=== PATIENT | female | born 1955 | race Caucasian/White ===

== ENCOUNTER 2019-06-10 06:51 | Inpatient (IN) ==
--- NOTE | 2019-04-27 13:15 | PAT Medication Instructions ---
Medication Instructions Date of Service April 27, 2019 Home Medications adalimumab [Humira Pen] 40 mg SUBCUT UD citalopram 20 mg PO QAM folic acid 5 mg PO QAM levothyroxine 100 mcg PO QAM losartan-hydrochlorothiazide 1 tab PO QAM metformin 500 mg PO QAM methotrexate sodium 7.5 mg PO WK ASK your prescriber and surgeon adalimumab [Humira Pen] 40 mg SUBCUT UD methotrexate sodium 7.5 mg PO WK DO NOT take the morning of surgery folic acid 5 mg PO QAM losartan-hydrochlorothiazide 1 tab PO QAM metformin 500 mg PO QAM Take morning of surgery With a small sip of water, OTHERWISE NOTHING TO EAT OR DRINK AFTER MIDNIGHT: citalopram 20 mg PO QAM levothyroxine 100 mcg PO QAM Other Notes If you have any questions please call us at [phone] or [phone] or [phone] or [phone]
--- NOTE | 2019-04-28 12:15 | Anesthesiology Consultation ---
Date of Service April 28, 2019 Assessment & Plan (1) Encounter for pre-operative examination: PCP clearance 05/16/2019: "Reno Hernandez is medically stable and cleared for right TKA with UOC. She will be holding Humira 2 weeks prior. She will be holding methotrexate for 1 week prior." CHECK BSG AM DOS Chart Review Chart Review: Acceptable Risk for Surgery and Patient seen in Pre Admission Testing Teaching & Discussion Instructed NPO after midnight before surgery, except medications with 15 cc of water. Medication instructions provided according to the PAT guidelines. History Surgery Operation Date: 06/10/19 07:30 Proposed Procedures p Right Total Knee Arthroplasty - Guillermo Doyle DO Height/Weight Height: 5 ft 4 in Weight: 87.6 kg Allergies Allergy/AdvReac Type Severity Reaction Status Date / Time No Known Allergies Unverified 04/21/19 09:49 Medications Home Medications Medication Instructions Recorded Confirmed Last Taken adalimumab [Humira Pen] 40 mg SUBCUT UD 04/21/19 04/21/19 Unknown citalopram 20 mg PO QAM 04/21/19 04/21/19 Unknown folic acid 5 mg PO QAM 04/21/19 04/21/19 Unknown levothyroxine 100 mcg PO QAM 04/21/19 04/21/19 Unknown losartan-hydrochlorothiazide 1 tab PO QAM 04/21/19 04/21/19 Unknown metformin 500 mg PO QAM 04/21/19 04/21/19 Unknown methotrexate sodium 7.5 mg PO WK 04/21/19 04/21/19 Unknown Past Medical History Medical History Anxiety Depression Diabetes mellitus, type 2 NIDDM Fibromyalgia History of colon polyps HTN (hypertension) Hypothyroidism Osteoarthritis Rheumatoid arthritis Exercise / Class Metabolic Activity II 4-5 Yardwork/Stairs/Walk up hill (Denies chest pain or SOB with 1 FOS, limited by knee pain) Past Family History Family History Sister Family history of diabetes mellitus Sister Family history of diabetes mellitus Mother Family hx of colon cancer Past Surgical History Surgical History History of abdominal hysterectomy History of ankle fusion LT History of appendectomy History of section X 3 History of colonoscopy History of D&C History of partial thyroidectomy History of tonsillectomy and adenoidectomy History of tooth extraction Nausea and vomiting after administration of anesthetic agent Past Anesthesia History No Hx of Anesthesia Complications (other than PONV) and No Family Hx of Anesthesia Complications History of PONV No Hx of PONV (several episodes) and Hx of Motion Sickness Social History Smoking Status: Former smoker Do You Dip or Chew Tobacco: No Smoking End Date: 1982 Hx Alcohol Use: Yes Alcohol type: wine and hard liquor alcohol intake frequency: a few times a month Hx Substance Use: No substance use type: does not use Review of Systems Pt denies any recent chest pain, shortness of breath, palpitations, cough, fever or URI. Physical Exam Vital Signs BP: 99/66 P: 58bpm SPO2: 98% RA T: 98.1 F R: 16 ENMT Mouth: + dental restorations (5 crowns in a row upper L side) and + small oral opening; no chipped teeth and no loose teeth Thyromental Distance: > or= 3.5 Finger Breadths (.5) Mallampati Class: II Neck normal visual inspection; neck extension not limited Respiratory normal respiratory effort Auscultation: lungs clear to auscultation bilaterally Cardiovascular Rate/Rhythm: regular rate and regular rhythm Heart Sounds: no murmur Vessels: no carotid bruit Extremities: no edema Testing Laboratory Results 04/28/19 12:29 04/28/19 12:29 PT 9.8 Seconds (9.0-12.0) 04/28/19 12:29 INR 1.0 (0.9-1.1) 04/28/19 12:29 APTT 23.4 Seconds (21.0-31.0) 04/28/19 12:29 Hemoglobin A1c 6.3 % (4.5-5.6) H 04/28/19 12:29 Urine Color Dark Yellow 04/28/19 Unknown Urine Appearance Clear (Clear) 04/28/19 Unknown Urine pH 7.0 (4.5-7.5) 04/28/19 Unknown Ur Specific [place] 1.021 (1.000-1.030) 04/28/19 Unknown Urine Protein Negative (Negative) 04/28/19 Unknown Urine Glucose (UA) Negative (Negative) 04/28/19 Unknown Urine Ketones Negative (Negative) 04/28/19 Unknown Urine Nitrite Negative (Negative) 04/28/19 Unknown Ur Leukocyte Esterase Negative (Negative) 04/28/19 Unknown Blood Type A Positive 04/28/19 12:29 Antibody Screen NEGATIVE 04/28/19 12:29 Electrocardiogram Date: 04/28/19 Findings: + SB @ (57bpm) Nonspecific T wave abnormality. When compared with EKG of 08/27/2009, no significant changes found. Chest X-Ray Date: 04/28/19 Findings: + NAD
--- NOTE | 2019-04-28 12:53 | XRay Report ---
XR chest Pre-admission PA/Lat CLINICAL HISTORY: 64 years-old Female presenting with preoperative evaluation. TECHNIQUE: PA and lateral views of the chest were obtained. COMPARISON: None. FINDINGS: Cardiomediastinal silhouette normal. Lungs and pleural spaces clear. Osseous structures normal. Upper abdomen normal. IMPRESSION: 1. No acute cardiopulmonary disease. Electronically signed by: Nhan Mcduffie M.D. 04/28/2019 12:51 PM
[2019-04-28 13:04] LABS: Basophils # (auto) 0.04 K/uL (0-0.2); Basophils % (auto) 0.8 %; Eosinophils # (auto) 0.23 K/uL (0-0.5); Eosinophils % (auto) 4.7 %; Hematocrit (blood only) 36.8 % (37-47); Hemoglobin 12.6 g/dL (12.0-16.0); Lymphocytes % (auto) 42.9 %; Mean Corpuscular Hemoglobin 32.4 pg (25-34); Mean Corpuscular Hgb Conc 34.2 g/dL (32-36); Mean Corpuscular Volume 94.6 fL (80-100); Mean Platelet Volume 9.8 fL (7.4-10.4); Monocytes # (auto) 0.46 K/uL (0.11-0.59); Monocytes % (auto) 9.4 %; Neutrophils # (auto) 2.07 K/uL (1.4-6.5); Neutrophils % (auto) 42.2 %; Platelet Count 234 K/uL (130-400); RDW Coefficient of Variation 12.7 % (11.5-14.5); RDW Standard Deviation 43.3 fL (36.4-46.3); Red Blood Count 3.89 M/uL (4.2-5.4)
[2019-04-28 13:11] LABS: Appearance Urine Clear (Clear); Bilirubin Urine Negative (Negative); Blood Urine Negative (Negative); Color Urine Dark Yellow; Glucose Urine UA Negative (Negative); Ketones Urine Negative (Negative); Leukocyte Esterase Urine Negative (Negative); Nitrite Urine Negative (Negative); Protein Urine Negative (Negative); Specific Gravity Urine 1.021 (1.000-1.030); Urobilinogen Urine Negative (Negative)
[2019-04-28 13:14] LABS: Partial Thromboplastin Ratio 0.9; Partial Thromboplastin Time 23.4 Seconds (21.0-31.0); Prothrombin Time 9.8 Seconds (9.0-12.0)
[2019-04-28 13:15] LABS: Albumin Level 3.4 gm/dl (3.4-5.0); BUN Creatinine Ratio 13.4 (10-20); Calcium 8.9 mg/dl (8.5-10.1); Creatinine Clr Calc Pharmacy 66.1 ml/min; Est GFR (African American) 76.8; Est GFR (Non-African American) 66.3; Potassium 4.4 mmol/L (3.5-5.1)
[2019-04-28 14:13] LABS: Estimated Average Glucose 134 mg/dl; Hemoglobin A1C 6.3 % (4.5-5.6)
--- NOTE | 2019-06-08 18:31 | History & Physical Report ---
Date of Service June 08, 2019 Assessment & Plan (1) Unilateral primary osteoarthritis, right knee: Schedule a right knee TKA for 06.10.2019. All potential risks, benefits, complications, alternatives, and rehab have been discussed with the patient and she wishes to proceed. Plan for ASA 81 mg BID x 4 wks for DVT prophylaxis. Home with home health upon d/c. (2) Genu varum of right lower extremity: History of Present Illness Chief Complaint: right knee pain Primary Care Provider: Masoud Landin MD This is a patient with chronic right knee pain that has been treated for right knee osteoarthritis. She has failed all conservative management and has persistent knee pain. She is now being set up for surgical tx. Allergies Allergy/AdvReac Type Severity Reaction Status Date / Time No Known Allergies Unverified 04/21/19 09:49 Home Medications Home Medications Medication Instructions Recorded Confirmed Type adalimumab [Humira Pen] 40 mg SUBCUT UD 04/21/19 04/21/19 History citalopram 20 mg PO QAM 04/21/19 04/21/19 History folic acid 5 mg PO QAM 04/21/19 04/21/19 History levothyroxine 100 mcg PO QAM 04/21/19 04/21/19 History losartan-hydrochlorothiazide 1 tab PO QAM 04/21/19 04/21/19 History metformin 500 mg PO QAM 04/21/19 04/21/19 History methotrexate sodium 7.5 mg PO WK 04/21/19 04/21/19 History Past Med/Surg History Medical History Anxiety Depression Diabetes mellitus, type 2 NIDDM Fibromyalgia History of colon polyps HTN (hypertension) Hypothyroidism Osteoarthritis Rheumatoid arthritis Surgical History History of abdominal hysterectomy History of ankle fusion LT History of appendectomy History of section X 3 History of colonoscopy History of D&C History of partial thyroidectomy History of tonsillectomy and adenoidectomy History of tooth extraction Nausea and vomiting after administration of anesthetic agent Family History Sister Family history of diabetes mellitus Sister Family history of diabetes mellitus Mother Family hx of colon cancer Social History Preferred Language: Honduran Communication Ability: Effective Practice Clinician Required: No Beliefs That Will Affect Care: None Current Living Situation: Significant Other Other Information That Helps Us Care for You: No Feels Safe at Home: Yes Safety Concerns: Feels Safe At This Time Smoking Status: Former smoker Do You Dip or Chew Tobacco: No ; Smoking End Date: 1982 ; Second Hand Exposure: No ; Tobacco Cessation Education Requested by Patient: No Hx Alcohol Use: Yes Alcohol type: wine and hard liquor Hx Substance Use: No Physical Exam Constitutional: well developed and well nourished; no acute distress ENMT: external ear and nose normal, oropharynx normal Neck: trachea midline, no thyromegaly Respiratory: normal respiratory effort, lungs clear to auscultation Cardiovascular: Rate/Rhythm: regular rate and regular rhythm Gastrointestinal (Abdomen): normal bowel sounds, soft, nontender, no hepatosplenomegaly Musculoskeletal: Gait: + antalgic gait (right knee) Knee: + knee ROM with crepitation (right), + joint line tenderness (right medial joint line), + varus alignment (right knee) and + Kiki's sign positive; no skin erythema, no ecchymosis and no surgical incision Skin: no rashes, warm and dry Neurologic: normal touch/pain/proprioception Psychiatric: A+Ox3, euthymic affect Lymphatic: no cervical or axillary lymphadenopathy
[~2019-06-10 06:51] MED LIST: ACETAMINOPHEN 500 MG TAB PO SCH; BUPIVACAINE 0.5 % 5 MG/1 ML PF 10ML VIAL ONE; CEFAZOLIN 2000MG 2,000 MG/15 ML SYR IV SCH; CeleBREX 200 MG CAP PO SCH; EPINEPHrine INJ 1 MG/ML AMP ONE; FAMOTIDINE 20 MG TAB PO SCH; GABAPENTIN 600 MG DOSE PO SCH; LR 500ML BOLUS, THEN 15ML/HR IV SCH; METOCLOPRAMIDE HCL 10 MG TABLET PO SCH; ROPIVACAINE 0.5% 5 MG/ML 30 ML VIAL ONE; ROPIVACAINE 0.5% HCL/PF 150 MG, BUPIVACAINE 0.5% MPF 30 ML, EPINEPHrine 30MG/30ML (OR U... INFIL SCH; dexAMETHasone 4 MG TAB PO SCH
[2019-06-10] MEDS ORDERED: MIDAZOLAM HCL 1 MG/ML 2ML VIAL ONE (07:08)
[2019-06-10] MEDS ORDERED: fentaNYL citrate 100 MCG/2 ML VIAL ONE (07:08)
--- NOTE | 2019-06-10 07:14 | History & Physical Bridge Note ---
Date of Service June 10, 2019 History & Physical Bridge Note I have examined the patient, reviewed the History & Physical and in the interval since the performance of the History & Physical I have noted the following changes of clinical significance: no changes noted
[2019-06-10] MEDS ORDERED: BACITRACIN INJ 50,000 UNIT VIAL ONE (08:08)
[2019-06-10] MEDS ORDERED: ORTHO JOINT ANESTHETIC ONE (08:08)
[2019-06-10] MEDS ORDERED: HYDROmorphone INJ 1 MG/ML SYRINGE IV PRN (08:10)
[2019-06-10] MEDS ORDERED: fentaNYL citrate 100 MCG/2 ML VIAL IV PRN (08:10)
[2019-06-10] MEDS ORDERED: ePHEDrine sulfate 50 MG/ML AMP IV PRN (08:10)
[2019-06-10] MEDS ORDERED: ONDANSETRON INJ 2 MG/ML 2 ML VIAL IV PRN ×2 (08:10→12:33)
[2019-06-10] MEDS ORDERED: ATROPINE SULFATE 0.1 MG/ML 10ML SYR IV PRN (08:10)
[2019-06-10] MEDS ORDERED: SCOPOLAMINE 1.5 MG TDSY ONE (08:14)
[2019-06-10] MEDS ORDERED: TRANEXAMIC ACID / 0.7% NACL 1,000 MG/100 ML BAG IV STA (08:54)
[2019-06-10] MEDS ORDERED: TRANEXAMIC ACID / 0.7% NACL 1000MG/100ML BAG IV ONE (08:56)
[2019-06-10] MEDS ORDERED: PROPOFOL IV EMULSION 10 MG/ML 20 ML VIAL IV ONE (09:48)
[2019-06-10] MEDS ORDERED: ePHEDrine sulfate 50 MG/ML AMP ONE (09:48)
[2019-06-10] MEDS ORDERED: LIDOCAINE HCL 2% 2 ML VIAL/AMP(20MG/ML) INFIL ONE (09:48)
[2019-06-10] MEDS ORDERED: PHENYLEPHRINE 100MCG/ML 5ML SYR ONE (09:48)
[2019-06-10] MEDS ORDERED: ONDANSETRON INJ 2 MG/ML 2 ML VIAL ONE (09:49)
--- NOTE | 2019-06-10 10:41 | Post Operative Brief Note ---
Immediate Post Op Note v1 Date of Surgery June 10, 2019 Pre & Post Diagnosis Operation Date: 06/10/19 08:50 Pre-Op Diagnosis: RIGHT KNEE DEGENERATIVE JOINT DISEASE, RIGHT KNEE GENU VARUM, RIGHT KNEE OSTEOARTHRITIS Post-Op Diagnosis: RIGHT KNEE DEGENERATIVE JOINT DISEASE, RIGHT KNEE GENU VARUM, RIGHT KNEE OSTEOARTHRITIS I identified the patient and participated in the time-out.: Yes Procedure Operation Date: 06/10/19 08:50 Actual Procedures p Right Total Knee Arthroplasty(Right) - Guillermo Doyle DO Surgeon Guillermo Doyle DO Aeronautical Engineering Professor Bernardo Womack PA-C Estimated Blood Loss 10 Findings Consistent with Post-Op Diagnosis Specimens Bone and tissue right knee Drains Hemovac Drain (dual lumen) Anesthesia Type Spinal MAC Complications none Disposition Accompanied Patient To Recovery: No Disposition: Recovery Room Overlapping Procedure I was present for: the critical portions of procedure. I was immediately available: during the entire case.
--- NOTE | 2019-06-10 11:00 | Operative Report ---
DATE OF OPERATION: 06/10/2019 PREOPERATIVE DIAGNOSES: 1. Right knee degenerative joint disease. 2. Genu varum. 3. Osteoarthritis, right knee. POSTOPERATIVE DIAGNOSES: 1. Right knee degenerative joint disease. 2. Genu varum. 3. Osteoarthritis, right knee. PROCEDURE: Right total knee arthroplasty using MRI matched Jackson [employer] Nephew Journey II knee components with custom cutting blocks. Size 5 femur, size 3 tibia, 12 mm posterior stabilized polyethylene and a 32 mm patella. SURGEON: Guillermo Doyle DO [employer] TECHNICIAN: Bernardo Womack PA-C who was present for patient positioning, sterile prep and drape, management of retractors and instruments. He was present through the critical portions of the case including wound closure, application of sterile dressing and transport of the patient to recovery. ANESTHESIA: Spinal, regional with intra-articular local. SPECIMENS: Bone and tissue, right knee. DRAINS: Hemovac x2. COMPLICATIONS: None. BLOOD LOSS: 10 mL. PERTINENT HISTORY: This is a 64-year-old woman who has had chronic progressive and worsening right knee pain and deformity for the last 4-5 years. She attempted and failed conservative management including physician directed home exercises, formal physical therapy, anti-inflammatories, rest, observation, use of brace and use of an assistive device and intra-articular steroid injections. She failed all measures. Radiographs demonstrate severe degenerative arthritis with complete loss of the medial joint space, marginal osteophytes, subchondral sclerosis and subchondral cysts. The patient was then scheduled for surgical intervention as indicated. PROCEDURE: The patient was taken to the Operative Suite and placed supine on the operating table after spinal epidural was initiated. Next, tourniquet was placed high on the right thigh over cast padding and the patient was sedated. The right lower extremity was then sterilely prepped and draped in the usual fashion. It was elevated and exsanguinated with an Esmarch bandage and tourniquet inflated to 350 mmHg. Next, a 10-blade scalpel incision was made along the anterior midline of the right knee with incision deep through the subcutaneous tissue. Meticulous hemostasis was utilized with electrocautery. Full thickness skin flaps were developed both medially and laterally and 10-blade scalpel was used to make a median parapatellar incision in the extensor. The patella was everted and soft tissue releases were performed. The medial collateral was noted to be slightly tight so this was partially released using pie-crusting technique and the Monsivais elevator was placed from the posterior aspect of the capsule releasing any contracture. Next, the patella was everted and resurfaced using sagittal saw and orthogonal cuts. After caliper measured 28 mm, residual patella was approximately 15 mm and 32 mm button trial was placed and then drilled. Next, the appropriate retractors were placed and the femoral patient matched cutting block was pinned to the distal aspect of the femur. The distal femoral cut was made and pinned with pins and the distal femoral cutting guide was removed. The 4-in-1 cutting block was then pinned in place and anterior, posterior, anterior chamfer, and posterior chamfer cuts were made. Block and bone fragments were then removed followed by exposure of the proximal tibia. Sharp Hohmann was used to place just posterior to the tibia to protract it. Medial and lateral sharp Hohmann's were placed to protect the soft tissue and the tibial cutting block was then pinned in place. Tibial alignment cleve was utilized to confirm alignment and the proximal tibia was then cut made with sagittal saw. Fragment was removed. The Size 3 tibial trial was pinned in place and circumferential proximal release was performed with electrocautery around the proximal tibia. Next, the femoral trial was placed within appropriate medial and lateral alignment and then the cutting block was then put into place. It was reamed and box cut was performed. Excess debris was removed from the femoral notch. The insert was placed into the distal aspect of the femur. Trial poly Size 12 mm was placed in the proximal tibia. The knee was reduced. Trial poly Size 32 mm was placed in the patella. The knee was reduced. Excellent alignment and range of motion was achieved with correction of the genu varum and flexion contracture was achieved. Next, all components were removed. The Orthomix was injected into the posterior capsule and anterior aspect of the capsule. Next, the wound was lavaged with pulsatile lavage and all surfaces were suctioned and dried. Palacos-G cement was placed in the distal femur, proximal tibia, patella, and then a small amount was placed in the canal of the tibia. All implants were impacted into place in a stable fashion. Excess cement was removed from the joint. The patellar button was cemented and clamped in place. After sufficient drying time elapsed, the joint was then base with sterile dilute Betadine for period of 3 minutes. A 10-Icelandic double lumen Hemovac drain was placed in the anterolateral aspect of the knee. Copious lavage was performed With lavage solution with bacitracin. The extensor mechanism was closed using interrupted #1 Vicryl. The dermis was closed using buried interrupted 2-0 Vicryl. The skin was closed with skin aden. Sterile compressive dressing from the toes to the groin was applied. The tourniquet was released. The patient was awakened and taken to the Recovery Room in stable condition. I attest to the content of the Intraoperative Record and any orders documented therein. Any exceptions are noted below. MTDD
--- NOTE | 2019-06-10 11:31 | XRay Report ---
XR knee RT 1 or 2V routine HISTORY: 64 years-old Female Surgical Post Op right knee total joint arthroplasty COMPARISON: None available TECHNIQUE: 2 views of the right knee FINDINGS: Right knee total joint arthroplasty and patellar resurfacing. Satisfactory alignment with anterior mi dline skin aden, expected postsurgical soft tissue swelling and deep tissue air with surgical drai nage catheter. No acute fracture or retained foreign body. IMPRESSION: Right knee total joint arthroplasty and patella resurfacing with expected postoperative f indings. ACT 112: Negative or not required by law. The above report was generated using voice recognition software. It may contain grammatical, syntax o r spelling errors. Electronically signed by: Valentino Menjivar M.D. 06/10/2019 11:30 AM
[2019-06-10] MEDS ORDERED: MAGNESIUM HYDROXIDE SUSP 30 ML UDC PO PRN (12:33)
[2019-06-10] MEDS ORDERED: bisacodyL 10 MG SUPP PR PRN (12:33)
[2019-06-10] MEDS ORDERED: HYDROmorphone INJ 0.5 MG/0.5 ML SYR IV PRN (12:33)
[2019-06-10] MEDS ORDERED: NALOXONE HCL 0.4 MG/1 ML VIAL/CARP IV PRN (12:33)
--- NOTE | 2019-06-10 12:36 | Anesthesiology Progress Note ---
Date of Service June 10, 2019 Anesthesia Post Procedure Vital Signs Vital Signs: Temp Pulse Pulse Resp BP Pulse Ox 06/10/19 12:32 36.4 C L 78 16 104/65 97 06/10/19 11:50 36.8 C 85 18 114/60 95 06/10/19 11:40 36.8 C 86 13 112/61 95 06/10/19 11:30 36.8 C 85 14 115/61 95 06/10/19 11:20 87 17 123/64 97 06/10/19 11:10 86 13 119/60 98 06/10/19 10:59 37.0 C 93 H 17 113/59 L 99 06/10/19 07:42 36.8 C 68 20 114/75 95 Pain Intensity Right Knee: Pain Intensity: 0 Transfer of Care Handoff Completed per policy Notes Mental Status: alert / awake / arousable and participated in evaluation Patient Amnestic to Procedure: Yes Nausea / Vomiting: adequately controlled Pain: adequately controlled Airway Patency, RR, SpO2: stable & adequate BP & HR: stable & adequate Hydration State: stable & adequate Neuraxial Anesthesia: was administered and sensory block is resolving Anesthetic Complications: no major complications apparent and Pt Satisfied with anesthetic care
[2019-06-10] MEDS: ACETAMINOPHEN 500 MG TAB PO SCH ×2 (13:51→21:24)
[2019-06-10] MEDS: SODIUM CHLORIDE 0.9% 1000ML 1,000 ML IV SCH ×2 (13:52→23:46)
[2019-06-10] MEDS ORDERED: PHARMACY GLYCEMIC MGMT CONSULT PRN (16:18)
[2019-06-10] MEDS ORDERED: GLUCAGON FOR INJ 1 MG VIAL IM PRN (16:45)
[2019-06-10] MEDS ORDERED: GLUCOSE 40% GEL 15 GM TUBE PO PRN (16:45)
[2019-06-10] MEDS ORDERED: CARBOHYDRATES FOR HYPOGLYCEMIA PO PRN (16:45)
[2019-06-10] MEDS ORDERED: GLUCOSE 10 TABS/TUBE PO PRN (16:45)
[2019-06-10] MEDS ORDERED: DEXTROSE 50% 50 ML SYRINGE IV PRN (16:45)
[2019-06-10] MEDS ORDERED: INSULIN GLARGINE SOLOSTAR 100 UNITS/ML 3 ML PEN SC ONE (17:00)
[2019-06-10] MEDS: FERROUS GLUCONATE 324 MG TAB PO SCH (17:38)
[2019-06-10] MEDS: CEFAZOLIN 2000MG 2,000 MG/15 ML SYR IV SCH ×2 (17:38→23:48)
[2019-06-10] MEDS: INSULIN ASPART 100 UNITS/ML 3 ML PEN SC SCH ×3 (18:07→23:48)
--- NOTE | 2019-06-10 20:09 | Pharmacy Report ---
Glycemic Control Consultation - Date of Service June 10, 2019 - Scope Scope: Glycemic Pharmacist consulted by Bernardo Womack on 06/10/2019 for glycemic control and to write orders per [facility] inpatient glycemic control protocol - Objective Weight: 87.4 kg Accuchecks BSG (last 24hrs): 06/10/19 06/10/19 06/10/19 07:35 11:00 12:23 POC Glucose 165 H 170 H 219 H 06/10/19 06/10/19 06/10/19 17:20 17:22 17:43 POC Glucose 313 H* 322 H* 279 H HbA1c: Hemoglobin A1c 6.3 % (4.5-5.6) H 04/28/19 12:29 - Recent Pertinent Medications Outpatient Anti-diabetic Regimen: * Metformin 500 mg PO daily * A1c = 6.3 % (04/28/19) Risk Factors for Insulin Resistance: * Steroids: dexamethasone 8 mg PO x 1 + intra-articular ortho mix * Recent Surgery: POD #0 s/p right TKA * Diet: T2DM - Assessment & Plan Assessment & Plan: ASSESSMENT: * SARIAH is a 64 year old female POD #0 s/p right TKA * Received 8 mg dexamethasone PO x 1 + ortho mix intraoperatively * Pharmacy consulted at dinner-time on 06/10/19 for a BSG of 313 * Lantus 35 units (0.4 unit/kg) given at that time with CF: 20 and CR: 6 PLAN FOR INPATIENT GLYCEMIC CONTROL: * Holding outpatient oral diabetes medications * Basal insulin * Lantus 35 units x 1 today * Lantus 15 units SQ BID thereafter - will reassess in AM * Bolus insulin * NovoLog per scale ACHS or Q6hrs while NPO * Goal Range: Low 110 mg/dL - High 140 mg/dL * Correction Factor: 25 mg/dL/unit * Nutritional / Prandial insulin per carb ratio of 1 unit per 9 grams CHO consumed * Overnight checks 00,04 with same parameters * Please note that the plan above was derived based on current level of insulin resistance and hospital stress. These recommendations are appropriate for inpatient admission only. Plan of care upon discharge will need to be reassessed to avoid potential outpatient hypo/hyperglycemia. Thank you.
[2019-06-10] MEDS ORDERED: SENNA 8.6 MG TAB PO SCH (21:00)
[2019-06-10] MEDS: DOCUSATE SODIUM 100 MG CAP PO SCH (21:24)
[2019-06-10] MEDS: ASPIRIN 81 MG ECTAB PO SCH (21:25)
[2019-06-10] MEDS: OXYCODONE HCL IR 5 MG TAB (IMMEDIATE RELEASE) PO PRN (23:45)
[2019-06-11] MEDS: INSULIN ASPART 100 UNITS/ML 3 ML PEN SC SCH ×3 (04:12→13:06)
[2019-06-11] MEDS: OXYCODONE HCL IR 5 MG TAB (IMMEDIATE RELEASE) PO PRN ×2 (04:12→14:33)
[2019-06-11] MEDS: ACETAMINOPHEN 500 MG TAB PO SCH ×2 (05:29→13:09)
[2019-06-11 05:51] LABS: Hematocrit (blood only) 29.6 % (37-47); Hemoglobin 10.4 g/dL (12.0-16.0); Mean Corpuscular Hemoglobin 32.4 pg (25-34); Mean Corpuscular Hgb Conc 35.1 g/dL (32-36); Mean Corpuscular Volume 92.2 fL (80-100); Mean Platelet Volume 9.7 fL (7.4-10.4); Platelet Count 207 K/uL (130-400); RDW Standard Deviation 43.7 fL (36.4-46.3); Red Blood Count 3.21 M/uL (4.2-5.4); White Blood Count 10.84 K/uL (4.8-10.8)
[2019-06-11 06:17] LABS: BUN Creatinine Ratio 19.5 (10-20); Calcium 8.4 mg/dl (8.5-10.1); Creatinine Clr Calc Pharmacy 51.3 ml/min; Est GFR (African American) 55.7; Est GFR (Non-African American) 48.1; Potassium 4.3 mmol/L (3.5-5.1)
[2019-06-11] MEDS ORDERED: LEVOTHYROXINE SODIUM 100 MCG TABLET PO SCH (06:30)
[2019-06-11] MEDS ORDERED: METFORMIN HCL 500 MG TAB PO SCH (08:00)
--- NOTE | 2019-06-11 08:05 | Orthopedic Progress Note ---
Date of Service June 11, 2019 Assessment & Plan (1) S/P total knee arthroplasty: POD#1 Right TKA -Pain management -DVT prophylaxis-SCDs, aspirin 81mg BID -PT/OT -AM labs-hemoglobin 10.4 this morning from 12.6 preop. -Foot drop this morning, will monitor -D/C planning-home with OPPT. Will recheck later today. If foot function improves possibly discharge for today. Subjective POD#1 right TKA. Pain well controlled this morning. Is having difficulty with DF. No other complaints Review of Systems Review of Systems: All systems reviewed & are unremarkable except as noted in HPI & below Physical Exam Physical Exam: Dressing is c/d/i. Hemovac in place. No calf tenderness. Distally sensation intact, pules palpable. Difficulty to actively DF. Results & Data Vital Signs (Past 12 Hours) Vital Signs Temp Pulse Resp BP Pulse Ox 06/11/19 07:38 92/55 L 06/11/19 07:35 36.6 C 69 18 89/51 L 06/11/19 04:05 36.6 C 66 18 103/57 L 96 06/10/19 23:00 36.9 C 66 16 99/65 L 96 Laboratory Results Lab Results 04/28/19 04/28/19 04/28/19 Range/Units 12:29 12:29 12:29 WBC 4.90 (4.8-10.8) K/uL RBC 3.89 L (4.2-5.4) M/uL Hgb 12.6 (12.0-16.0) g/dL Hct 36.8 L (37-47) % MCV 94.6 (80-100) fL MCH 32.4 (25-34) pg MCHC 34.2 (32-36) g/dL RDW Std Deviation 43.3 (36.4-46.3) fL RDW Coeff of Sheryl 12.7 (11.5-14.5) % Plt Count 234 (130-400) K/uL MPV 9.8 (7.4-10.4) fL Immature Gran % (Auto) 0.0 % Neut % (Auto) 42.2 % Lymph % (Auto) 42.9 % Charles % (Auto) 9.4 % Eos % (Auto) 4.7 % Baso % (Auto) 0.8 % Immature Gran # (Auto) 0.00 (0.00-0.02) K/uL Neut # (Auto) 2.07 (1.4-6.5) K/uL Lymph # (Auto) 2.10 (1.2-3.4) K/uL Charles # (Auto) 0.46 (0.11-0.59) K/uL Eos # (Auto) 0.23 (0-0.5) K/uL Baso # (Auto) 0.04 (0-0.2) K/uL PT 9.8 (9.0-12.0) Seconds INR 1.0 (0.9-1.1) APTT 23.4 (21.0-31.0) Seconds PTT Ratio 0.9 Sodium 141 (136-145) mmol/L Potassium 4.4 (3.5-5.1) mmol/L Chloride 108 H (98-107) mmol/L Carbon Dioxide 32 (21-32) mmol/L Anion Gap 1.0 L (3-11) BUN 12 (7-18) mg/dl Creatinine 0.92 (0.6-1.2) mg/dl Est Cr Clr Drug Dosing 66.1 ml/min Est GFR ( Amer) 76.8 Est GFR (Non-Af Amer) 66.3 BUN/Creatinine Ratio 13.4 (10-20) Glucose 94 (70-99) mg/dl POC Glucose (70-99) mg/dl Estimat Average Glucose mg/dl Hemoglobin A1c (4.5-5.6) % Calcium 8.9 (8.5-10.1) mg/dl Albumin 3.4 (3.4-5.0) gm/dl Urine Color Urine Appearance (Clear) Urine pH (4.5-7.5) Ur Specific Astor (1.000-1.030) Urine Protein (Negative) Urine Glucose (UA) (Negative) Urine Ketones (Negative) Urine Blood (Negative) Urine Nitrite (Negative) Urine Bilirubin (Negative) Urine Urobilinogen (Negative) Ur Leukocyte Esterase (Negative) Blood Type Antibody Screen 04/28/19 04/28/19 04/28/19 Range/Units 12:29 12:29 Unknown WBC (4.8-10.8) K/uL RBC (4.2-5.4) M/uL Hgb (12.0-16.0) g/dL Hct (37-47) % MCV (80-100) fL MCH (25-34) pg MCHC (32-36) g/dL RDW Std Deviation (36.4-46.3) fL RDW Coeff of Sheryl (11.5-14.5) % Plt Count (130-400) K/uL MPV (7.4-10.4) fL Immature Gran % (Auto) % Neut % (Auto) % Lymph % (Auto) % Charles % (Auto) % Eos % (Auto) % Baso % (Auto) % Immature Gran # (Auto) (0.00-0.02) K/uL Neut # (Auto) (1.4-6.5) K/uL Lymph # (Auto) (1.2-3.4) K/uL Charles # (Auto) (0.11-0.59) K/uL Eos # (Auto) (0-0.5) K/uL Baso # (Auto) (0-0.2) K/uL PT (9.0-12.0) Seconds INR (0.9-1.1) APTT (21.0-31.0) Seconds PTT Ratio Sodium (136-145) mmol/L Potassium (3.5-5.1) mmol/L Chloride (98-107) mmol/L Carbon Dioxide (21-32) mmol/L Anion Gap (3-11) BUN (7-18) mg/dl Creatinine (0.6-1.2) mg/dl Est Cr Clr Drug Dosing ml/min Est GFR ( Amer) Est GFR (Non-Af Amer) BUN/Creatinine Ratio (10-20) Glucose (70-99) mg/dl POC Glucose (70-99) mg/dl Estimat Average Glucose 134 mg/dl Hemoglobin A1c 6.3 H (4.5-5.6) % Calcium (8.5-10.1) mg/dl Albumin (3.4-5.0) gm/dl Urine Color Dark Yellow Urine Appearance Clear (Clear) Urine pH 7.0 (4.5-7.5) Ur Specific Astor 1.021 (1.000-1.030) Urine Protein Negative (Negative) Urine Glucose (UA) Negative (Negative) Urine Ketones Negative (Negative) Urine Blood Negative (Negative) Urine Nitrite Negative (Negative) Urine Bilirubin Negative (Negative) Urine Urobilinogen Negative (Negative) Ur Leukocyte Esterase Negative (Negative) Blood Type A Positive Antibody Screen NEGATIVE 06/10/19 06/10/19 06/10/19 Range/Units 07:35 11:00 12:23 WBC (4.8-10.8) K/uL RBC (4.2-5.4) M/uL Hgb (12.0-16.0) g/dL Hct (37-47) % MCV (80-100) fL MCH (25-34) pg MCHC (32-36) g/dL RDW Std Deviation (36.4-46.3) fL RDW Coeff of Sheryl (11.5-14.5) % Plt Count (130-400) K/uL MPV (7.4-10.4) fL Immature Gran % (Auto) % Neut % (Auto) % Lymph % (Auto) % Charles % (Auto) % Eos % (Auto) % Baso % (Auto) % Immature Gran # (Auto) (0.00-0.02) K/uL Neut # (Auto) (1.4-6.5) K/uL Lymph # (Auto) (1.2-3.4) K/uL Charles # (Auto) (0.11-0.59) K/uL Eos # (Auto) (0-0.5) K/uL Baso # (Auto) (0-0.2) K/uL PT (9.0-12.0) Seconds INR (0.9-1.1) APTT (21.0-31.0) Seconds PTT Ratio Sodium (136-145) mmol/L Potassium (3.5-5.1) mmol/L Chloride (98-107) mmol/L Carbon Dioxide (21-32) mmol/L Anion Gap (3-11) BUN (7-18) mg/dl Creatinine (0.6-1.2) mg/dl Est Cr Clr Drug Dosing ml/min Est GFR ( Amer) Est GFR (Non-Af Amer) BUN/Creatinine Ratio (10-20) Glucose (70-99) mg/dl POC Glucose 165 H 170 H 219 H (70-99) mg/dl Estimat Average Glucose mg/dl Hemoglobin A1c (4.5-5.6) % Calcium (8.5-10.1) mg/dl Albumin (3.4-5.0) gm/dl Urine Color Urine Appearance (Clear) Urine pH (4.5-7.5) Ur Specific Astor (1.000-1.030) Urine Protein (Negative) Urine Glucose (UA) (Negative) Urine Ketones (Negative) Urine Blood (Negative) Urine Nitrite (Negative) Urine Bilirubin (Negative) Urine Urobilinogen (Negative) Ur Leukocyte Esterase (Negative) Blood Type Antibody Screen 06/10/19 06/10/19 06/10/19 Range/Units 17:20 17:22 17:43 WBC (4.8-10.8) K/uL RBC (4.2-5.4) M/uL Hgb (12.0-16.0) g/dL Hct (37-47) % MCV (80-100) fL MCH (25-34) pg MCHC (32-36) g/dL RDW Std Deviation (36.4-46.3) fL RDW Coeff of Sheryl (11.5-14.5) % Plt Count (130-400) K/uL MPV (7.4-10.4) fL Immature Gran % (Auto) % Neut % (Auto) % Lymph % (Auto) % Charles % (Auto) % Eos % (Auto) % Baso % (Auto) % Immature Gran # (Auto) (0.00-0.02) K/uL Neut # (Auto) (1.4-6.5) K/uL Lymph # (Auto) (1.2-3.4) K/uL Charles # (Auto) (0.11-0.59) K/uL Eos # (Auto) (0-0.5) K/uL Baso # (Auto) (0-0.2) K/uL PT (9.0-12.0) Seconds INR (0.9-1.1) APTT (21.0-31.0) Seconds PTT Ratio Sodium (136-145) mmol/L Potassium (3.5-5.1) mmol/L Chloride (98-107) mmol/L Carbon Dioxide (21-32) mmol/L Anion Gap (3-11) BUN (7-18) mg/dl Creatinine (0.6-1.2) mg/dl Est Cr Clr Drug Dosing ml/min Est GFR ( Amer) Est GFR (Non-Af Amer) BUN/Creatinine Ratio (10-20) Glucose (70-99) mg/dl POC Glucose 313 H* 322 H* 279 H (70-99) mg/dl Estimat Average Glucose mg/dl Hemoglobin A1c (4.5-5.6) % Calcium (8.5-10.1) mg/dl Albumin (3.4-5.0) gm/dl Urine Color Urine Appearance (Clear) Urine pH (4.5-7.5) Ur Specific Astor (1.000-1.030) Urine Protein (Negative) Urine Glucose (UA) (Negative) Urine Ketones (Negative) Urine Blood (Negative) Urine Nitrite (Negative) Urine Bilirubin (Negative) Urine Urobilinogen (Negative) Ur Leukocyte Esterase (Negative) Blood Type Antibody Screen 06/10/19 06/10/19 06/11/19 Range/Units 20:36 23:36 04:00 WBC (4.8-10.8) K/uL RBC (4.2-5.4) M/uL Hgb (12.0-16.0) g/dL Hct (37-47) % MCV (80-100) fL MCH (25-34) pg MCHC (32-36) g/dL RDW Std Deviation (36.4-46.3) fL RDW Coeff of Sheryl (11.5-14.5) % Plt Count (130-400) K/uL MPV (7.4-10.4) fL Immature Gran % (Auto) % Neut % (Auto) % Lymph % (Auto) % Charles % (Auto) % Eos % (Auto) % Baso % (Auto) % Immature Gran # (Auto) (0.00-0.02) K/uL Neut # (Auto) (1.4-6.5) K/uL Lymph # (Auto) (1.2-3.4) K/uL Charles # (Auto) (0.11-0.59) K/uL Eos # (Auto) (0-0.5) K/uL Baso # (Auto) (0-0.2) K/uL PT (9.0-12.0) Seconds INR (0.9-1.1) APTT (21.0-31.0) Seconds PTT Ratio Sodium (136-145) mmol/L Potassium (3.5-5.1) mmol/L Chloride (98-107) mmol/L Carbon Dioxide (21-32) mmol/L Anion Gap (3-11) BUN (7-18) mg/dl Creatinine (0.6-1.2) mg/dl Est Cr Clr Drug Dosing ml/min Est GFR ( Amer) Est GFR (Non-Af Amer) BUN/Creatinine Ratio (10-20) Glucose (70-99) mg/dl POC Glucose 264 H 179 H 141 H (70-99) mg/dl Estimat Average Glucose mg/dl Hemoglobin A1c (4.5-5.6) % Calcium (8.5-10.1) mg/dl Albumin (3.4-5.0) gm/dl Urine Color Urine Appearance (Clear) Urine pH (4.5-7.5) Ur Specific Astor (1.000-1.030) Urine Protein (Negative) Urine Glucose (UA) (Negative) Urine Ketones (Negative) Urine Blood (Negative) Urine Nitrite (Negative) Urine Bilirubin (Negative) Urine Urobilinogen (Negative) Ur Leukocyte Esterase (Negative) Blood Type Antibody Screen 06/11/19 06/11/19 Range/Units 05:26 05:26 WBC 10.84 H (4.8-10.8) K/uL RBC 3.21 L (4.2-5.4) M/uL Hgb 10.4 L (12.0-16.0) g/dL Hct 29.6 L (37-47) % MCV 92.2 (80-100) fL MCH 32.4 (25-34) pg MCHC 35.1 (32-36) g/dL RDW Std Deviation 43.7 (36.4-46.3) fL RDW Coeff of Sheryl 13.0 (11.5-14.5) % Plt Count 207 (130-400) K/uL MPV 9.7 (7.4-10.4) fL Immature Gran % (Auto) % Neut % (Auto) % Lymph % (Auto) % Charles % (Auto) % Eos % (Auto) % Baso % (Auto) % Immature Gran # (Auto) (0.00-0.02) K/uL Neut # (Auto) (1.4-6.5) K/uL Lymph # (Auto) (1.2-3.4) K/uL Charles # (Auto) (0.11-0.59) K/uL Eos # (Auto) (0-0.5) K/uL Baso # (Auto) (0-0.2) K/uL PT (9.0-12.0) Seconds INR (0.9-1.1) APTT (21.0-31.0) Seconds PTT Ratio Sodium 136 (136-145) mmol/L Potassium 4.3 (3.5-5.1) mmol/L Chloride 106 (98-107) mmol/L Carbon Dioxide 23 (21-32) mmol/L Anion Gap 7.0 (3-11) BUN 23 H (7-18) mg/dl Creatinine 1.20 (0.6-1.2) mg/dl Est Cr Clr Drug Dosing 51.3 ml/min Est GFR ( Amer) 55.7 Est GFR (Non-Af Amer) 48.1 BUN/Creatinine Ratio 19.5 (10-20) Glucose 128 H (70-99) mg/dl POC Glucose (70-99) mg/dl Estimat Average Glucose mg/dl Hemoglobin A1c (4.5-5.6) % Calcium 8.4 L (8.5-10.1) mg/dl Albumin (3.4-5.0) gm/dl Urine Color Urine Appearance (Clear) Urine pH (4.5-7.5) Ur Specific Astor (1.000-1.030) Urine Protein (Negative) Urine Glucose (UA) (Negative) Urine Ketones (Negative) Urine Blood (Negative) Urine Nitrite (Negative) Urine Bilirubin (Negative) Urine Urobilinogen (Negative) Ur Leukocyte Esterase (Negative) Blood Type Antibody Screen (1) S/P total knee arthroplasty Laterality: right Qualified Code(s): Z96.651 - Presence of right artificial knee joint
[2019-06-11] MEDS ORDERED: INSULIN GLARGINE SOLOSTAR 100 UNITS/ML 3 ML PEN SC SCH (09:00)
[2019-06-11] MEDS ORDERED: CITALOPRAM 20 MG TAB PO SCH (09:00)
[2019-06-11] MEDS ORDERED: FOLIC ACID 1 MG TAB PO SCH (09:00)
[2019-06-11] MEDS ORDERED: LOSARTAN POTASSIUM 50 MG TAB PO SCH (09:00)
[2019-06-11] MEDS ORDERED: MULTIVITAMIN TAB PO SCH (09:00)
[2019-06-11] MEDS: FERROUS GLUCONATE 324 MG TAB PO SCH (09:20)
[2019-06-11] MEDS: hydroCHLOROthiazide 25 MG TAB PO SCH ×2 (09:21→09:26)
[2019-06-11] MEDS: DOCUSATE SODIUM 100 MG CAP PO SCH (09:22)
[2019-06-11] MEDS: ASPIRIN 81 MG ECTAB PO SCH (10:14)
--- NOTE | 2019-06-11 14:28 | Anesthesiology Progress Note ---
Date of Service June 11, 2019 Anesthesia Post Procedure Vital Signs Vital Signs: Temp Pulse Resp BP Pulse Ox 06/11/19 13:57 36.6 C 69 18 92/55 L 96 06/11/19 07:38 92/55 L 06/11/19 07:35 36.6 C 69 18 89/51 L 06/11/19 04:05 36.6 C 66 18 103/57 L 96 06/10/19 23:00 36.9 C 66 16 99/65 L 96 06/10/19 19:35 36.5 C 85 17 145/74 H 98 06/10/19 15:26 94 06/10/19 15:10 36.5 C 88 16 106/68 97 Pain Intensity Right Knee: Pain Intensity: 4 Notes Mental Status: alert / awake / arousable and participated in evaluation Patient Amnestic to Procedure: Yes Nausea / Vomiting: adequately controlled Pain: adequately controlled Airway Patency, RR, SpO2: stable & adequate BP & HR: stable & adequate Hydration State: stable & adequate Neuraxial Anesthesia: was administered and sensory block resolved Anesthetic Complications: no major complications apparent
--- NOTE | 2019-06-14 14:33 | Discharge Summary ---
Date of Service June 14, 2019 Admission HPI Per Admitting Provider This is a patient with chronic right knee pain that has been treated for right knee osteoarthritis. She has failed all conservative management and has persistent knee pain. She is now being set up for surgical tx. Admission Exam Per Admitting Provider Constitutional: well developed and well nourished; no acute distress ENMT: external ear and nose normal, oropharynx normal Neck: trachea midline, no thyromegaly Respiratory: normal respiratory effort, lungs clear to auscultation Cardiovascular: Rate/Rhythm: regular rate and regular rhythm Gastrointestinal (Abdomen): normal bowel sounds, soft, nontender, no hepatosplenomegaly Musculoskeletal: Gait: + antalgic gait (right knee) Knee: + knee ROM with crepitation (right), + joint line tenderness (right medial joint line), + varus alignment (right knee) and + Kiki's sign positive; no skin erythema, no ecchymosis and no surgical incision Skin: no rashes, warm and dry Neurologic: normal touch/pain/proprioception Psychiatric: A+Ox3, euthymic affect Lymphatic: no cervical or axillary lymphadenopathy Principal Diagnosis Right knee osteoarthritis Discharge Data Allergies Allergy/AdvReac Type Severity Reaction Status Date / Time No Known Allergies Verified 06/10/19 07:25 Consultations 06/10/19 12:33 Consult Case Management - Discharge Planning Routine Procedures Performed Operation Date: 06/10/19 08:50 Actual Procedures p Right Total Knee Arthroplasty(Right) - Guillermo Doyle DO Ordered Studies 06/10/19 05:00 US - OR guided needle placemen Routine 06/10/19 08:05 US - OR guided needle placemen Routine Hospital Course (1) S/P total knee arthroplasty: [place] [id number] Orthopedic Progress Note Signed with Denisse Patient: Oscar PATRICIO Date: 06/10/19 MR#: [id number] Phy: Guillermo Doyle D.OVannesa Acct ID:[id number] Phy: Masoud Landin MD Date: 1955Fam Phy: Age: 64Location: 3E Sex: F Room/Bed: [facility] cc: ~ *NOTICE TO RECEIVING GREEN PARTY/AGENCY This information is strictly Confidential and protected under [place] law. [place] law prohibits you from making any further disclosure of this information unless further disclosure is expressly permitted by the written consent of the person to whom it pertains or is authorized by law. A general authorization for the release of medical or other information is not sufficient for this purpose. Hospital accepts no responsibility if the information is made available to any other person, INCLUDING THE PATIENT. ADDENDUM Addendum (Blank) Addendum June 11, 2019 14:[address] Doyle who was in to the see the patient this afternoon. She is okay for discharge home today. Addendum Signed By:<Electronically signed by Satya Nelson >06/11/191429 Addendum Cosigned By:<Electronically signed by Guillermo Doyle DO>06/11/19 154 Created: 06/11/19 Date of Service June 11, 2019 Assessment & Plan (1) S/P total knee arthroplasty: POD#1 Right TKA -Pain management -DVT prophylaxis-SCDs, aspirin 81mg BID -PT/OT -AM labs-hemoglobin 10.4 this morning from 12.6 preop. -Foot drop this morning, will monitor -D/C planning-home with OPPT. Will recheck later today. If foot function improves possibly discharge for today. Subjective POD#1 right TKA. Pain well controlled this morning. Is having difficulty with DF. No other complaints Review of Systems Review of Systems: All systems reviewed & are unremarkable except as noted in HPI & below Physical Exam Physical Exam: Dressing is c/d/i. Hemovac in place. No calf tenderness. Distally sensation intact, pules palpable. Difficulty to actively DF. Results & Data Vital Signs (Past 12 Hours) Vital Signs Temp Pulse Resp BP Pulse Ox 06/11/19 07:38 92/55 L 06/11/19 07:35 36.6 C 69 18 89/51 L 06/11/19 04:05 36.6 C 66 18 103/57 L 96 06/10/19 23:00 36.9 C 66 16 99/65 L 96 Total Time Total Time Spent Total Time Spent (In Minutes): 5 Discharge Plan Discharge Items Patient Disposition: Home - Self-Care Reason For Visit: RIGHT KNEE OSTEOARTHRITIS Discharge Diagnosis: Right knee osteoarthritis Activity: Per Instructions section Non-emergency contact: Surgeon Call non-emergency contact if: you have any medication questions, your pain is not controlled, your pain is worsening, your pain is concerning for you, you have a fever, your temperature is above 101, your wound has increased redness, your wound has increased drainage and your wound pain has increased Follow-up/Referrals: Masoud Landin MD [Primary Care Provider] - Diet: Regular Addtl Attending Provider Instructions: ACTIVITY RECOMMENDATIONS: SELF CARE INSTRUCTIONS AFTER TOTAL KNEE REPLACEMENT A. You may need to continue a physical therapy program after discharge from the hospital. There are several options available to you. Your doctor will assist you in selecting the best one for you. 1. An out-patient facility 2 to 3 times a week for therapy or home therapy. 2. Continue working on all exercises taught to you in the hospital. Your goals should be to increase bending of your knee to 90 degrees and beyond and to fully straighten your knee. B. You may progress at your own pace from walking with a walker or crutches to a cane; then to no assistive devices. C. Make walking a part of your daily routine. Be up as much as comfortable with rest periods throughout the day. Rest with leg elevation is very important. Use the ice wrap frequently for the first 3-4 weeks. D. There are no restrictions on activities. You may ride in a car, shop, participate in [employer] concrete [employer] and all social activities. E. Wear the long elastic stockings (SHERI hose) 20 hours a day for one month after surgery. They can be removed several times a day for laundering and for a bath. SPECIAL CARE INSTRUCTIONS: VERY IMPORTANT TO READ AND REVIEW A. Take Coumadin, Xarelto, Aspirin or Lovenox (blood thinning medications) as directed by your doctor. If on Coumadin, have a pro-time (blood test) drawn according to your doctor's instructions. This will tell the doctor how well the Coumadin is thinning your blood. B. There are a few signs you need to watch for after you are home. Call [facility] if you notice any of the followin. Increased severe knee pain. Some pain is expected especially when you exercise. 2. Increased swelling in your leg or knee; pain or swelling of the calf muscle in either lower leg. 3. Any fluid drainage from the incision. 4. Shortness of breath or chest pain. C. Please call [facility] at if you have any concerns or questions about your operation or recovery. The doctor or his nurse will return your call promptly. D. You must take antibiotics before dental work, bladder, bowel or other surgery. Your doctor will provide you with a permanent care to carry describing this precaution. * CALL IF INCREASED PAIN, REDNESS, DRAINAGE OR FEVER GREATER THAT 101 F. * WEAR SHERI HOSE 20 HOURS PER DAY FOR 4 WEEKS. FOLLOW UP VISIT: If appointment is not already scheduled: Please call [facility] to make a follow-up appointment for 2 weeks after your surgery to have aden removed at . Pending Studies at Discharge: No Stand-Alone Forms: My [facility], Opioid Pain Management, Smoking Cessation Medications and DC Order Prescriptions: New aspirin [Ecotrin Low Strength] 81 mg Tablet,Delayed Release (Dr/Ec) 81 mg PO BID Qty: 60 RF: 0 acetaminophen 500 mg Tablet 1,000 mg PO Q8 Qty: 60 RF: 0 oxycodone 5 mg tablet 5 - 10 mg PO .Q4H-6H MDD 6 PRN (Reason: pain) Qty: 30 RF: 0 Continued metformin 500 mg Tablet 500 mg PO QAM RF: 0 levothyroxine 100 mcg Tablet 100 mcg PO QAM RF: 0 citalopram 20 mg Tablet 20 mg PO QAM RF: 0 methotrexate sodium 2.5 mg Tablet 7.5 mg PO WK RF: 0 folic acid 1 mg Tablet 5 mg PO QAM RF: 0 losartan-hydrochlorothiazide 100-12.5 mg Tablet 1 tab PO QAM RF: 0 Humira Pen 40 mg/0.8 mL Pen Injector Kit 40 mg SUBCUT UD RF: 0 multivitamin Tablet 1 tab PO DAILY RF: 0 Discharge Orders: Discharge Order (Routine); Ordered 06/11/19 Ordered By: Satya Nelson Admission Data Admit Date/Time: 06/10/19 11:09 Attending Provider: Guillermo Doyle Admit Provider: Guillermo Doyle Primary Care Provider: Masoud Landin Other Interventions: Discharge Summary Assessment (RN) Last Done: 06/11/19 13:57 DC Date/Time DO NOT enter until pt leaves facility: 06/11/19 15:25
== END 2019-06-11 15:25 | disposition home or self-care (01) | DRG 470 ==
LOC: ASU 06:51 → 3E 11:09
DX: M79.7 Fibromyalgia; E11.9 Type 2 diabetes mellitus without complications; I10 Essential (primary) hypertension; M21.161 Varus deformity, not elsewhere classified, right knee; M17.11 Unilateral primary osteoarthritis, right knee